=== PATIENT | female | born 1965 | race Caucasian/White ===

== ENCOUNTER → 2019-12-28 11:15 | Outpatient (CLI) | payer OTHER, SELFPAY ==
--- NOTE | ~2019-12-28 | MM_ITS ---
EXAMINATION: MM screening [facility] BI w sean HISTORY: Screening mammogram TECHNIQUE: Craniocaudal and mediolateral oblique 3-D tomosynthesis images were obtained and synthetic 2-D images were generated. CAD analysis was submitted and interpreted. COMPARISON: 11/01/2018, 10/28/2017, 10/27/2016 BREAST PARENCHYMAL COMPOSITION: There are scattered areas of fibroglandular density. FINDINGS: There is no evidence of suspicious mass, calcification, or architectural distortion to sugg est malignancy in either breast. There has been no suspicious interval change. IMPRESSION: 1. No mammographic evidence of malignancy. 2. Recommend routine screening mammography in one year. BI-RADS Category 1: Negative Reviewed, dictated and finalized at location A. ICAL WORKER
== END ==
PROVIDERS: PCP Internal Medicine; Visit Provider Obstetrics & Gynecology
DX: Z12.31 Encounter for screening mammogram for malignant neoplasm of breast (principal)
CPT/HCPCS: 77063; 77067

== ENCOUNTER → 2020-08-05 08:48 | Outpatient (CLI) | payer OTHER, SELFPAY ==
--- NOTE | ~2020-08-05 | US_ITS ---
EXAMINATION: US carotid duplex BI DATE: 08/05/2020 09:11 INDICATION: Right carotid bruit TECHNIQUE: Grayscale, color Doppler, and pulsed Doppler images of the cervical carotid arteries were obtained. The degree of vessel stenosis is placed in one of the following categories: normal, <50%, 5 0-69%, >=70% but less than near-occlusion, near-occlusion, or total occlusion. Note that percent sten osis relative to normal distal artery lumen diameter is indirectly measured from velocity measurement s as described by Sergey, et al. Radiology 2003; 229:340-346. Notes: Normal: Peak systolic velocity <125 centimeters/sec and no plaque <50%. Peak systolic velocity <125 ( EDV <40; ICA/CCA PSV ratio <2.0; used these factors only a tandem lesions or low cardiac output or co ntralateral disease) 50-69 %: PSV 125-230 (EDV 40-100; ratio 2-4) >= 70% but less than near occlusion: PSV greater than 230 (EDV > 100; ratio> 4.0) Near Occlusion: PSV that is variable; markedly narrowed lumen Occlusion: Absent flow on color/spectral Doppler and no lumen on acosta scale. COMPARISON: None. FINDINGS: RIGHT: The right common carotid artery (CCA) peak systolic velocity (PSV) is 90 cm/s. The right internal car otid artery (ICA) PSV is 126 cm/s. The right ICA end-diastolic velocity (EDV) is 45 cm/s. The right I CA/CCA PSV ratio is 1.9. The external carotid artery (ECA) PSV is 109 cm/s. There is antegrade flow i n the right vertebral artery. LEFT: The left CCA PSV is 99 cm/s. The left ICA PSV is 105 cm/s. The left ICA EDV is 45 cm/s. The left ICA/ CCA PSV ratio is 1.3. The ECA PSV is 84 cm/s. There is antegrade flow in the left vertebral artery. IMPRESSION: 1. Less than 50% stenosis in the right internal carotid artery by sonographic criteria. 2. Less than 50% stenosis in the left internal carotid artery by sonographic criteria. Reviewed, dictated and finalized at location B. IMPRESSION: 1. Less than 50% stenosis in the right internal carotid artery by sonographic ricki ramos. 2. Less than 50% stenosis in the left internal carotid artery by sonographic monique gorman.
== END ==
PROVIDERS: Visit Provider Internal Medicine
DX: R09.89 Other specified symptoms and signs involving the circulatory and respiratory systems (principal); I65.23 Occlusion and stenosis of bilateral carotid arteries
CPT/HCPCS: 93880

== ENCOUNTER → 2021-01-13 12:15 | Outpatient (CLI) | payer OTHER, SELFPAY ==
--- NOTE | ~2021-01-13 | MM_ITS ---
EXAMINATION: MM screening [facility] BI w sean HISTORY: Screening mammogram TECHNIQUE: Craniocaudal and mediolateral oblique 3-D tomosynthesis images were obtained and synthetic 2-D images were generated. CAD analysis was submitted and interpreted. COMPARISON: 12/28/2019, 11/01/2018, 10/28/2017 BREAST PARENCHYMAL COMPOSITION: There are scattered areas of fibroglandular density. FINDINGS: There is no evidence of suspicious mass, calcification, or architectural distortion to sugg est malignancy in either breast. There has been no suspicious interval change. IMPRESSION: 1. No mammographic evidence of malignancy. 2. Recommend routine screening mammography in one year. BI-RADS Category 1: Negative Reviewed, dictated and finalized at location A. NEYMAN SHEET METAL WORKER
== END ==
PROVIDERS: PCP Internal Medicine; Visit Provider Obstetrics & Gynecology
DX: Z12.31 Encounter for screening mammogram for malignant neoplasm of breast (principal)
CPT/HCPCS: 77063; 77067

== ENCOUNTER → 2021-10-07 10:24 | Outpatient (CLI) | payer OTHER, SELFPAY ==
--- NOTE | ~2021-10-07 | DEXA_ITS ---
Bone Density Report Name: Sania Mathew Age: 55 Sex: Female Ethnicity: White Date of : 1965 Indication: osteopenia; monitoring treatment; hysterectomy; postmenopausal Referring Provider: SURAJ, LOWELL León Study: Bone densitometry was performed. Exam Date: October 07, 2021 Accession number: [id number] Bone Density: Region BMD T-score Z-score Classification AP Spine (L1-L4) 0.832 -2.0 -0.7 Osteopenia Femoral Neck (Left) 0.658 -1.7 -0.5 Osteopenia Total Hip (Left) 0.823 -1.0 -0.2 Normal Femoral Neck (Right) 0.673 -1.6 -0.4 Osteopenia Total Hip (Right) 0.793 -1.2 -0.4 Osteopenia Total Hip Mean 0.808 -1.1 -0.3 Osteopenia World Health Organization criteria for BMD impression classify patients as: Normal (T-score at or above -1.0), Osteopenia (T-score between -1.0 and -2.5), or Osteoporosis (T-score at or below -2.5). 10-year Fracture Risk: FRAX not reported because: Treated for osteoporosis Previous Exams: Region Exam Age BMD T-score BMD Change BMD Change Date g/cm2 vs Baseline vs Previous AP Spine(L1-L4) 10/07/2021 55 0.832 -2.0 -0.106* -0.106* 11/05/2008 42 0.938 -1.0 Total Hip(Left) 10/07/2021 55 0.823 -1.0 -0.012 -0.012 11/05/2008 42 0.835 -0.9 Total Hip(Right) 10/07/2021 55 0.793 -1.2 -0.011 -0.011 11/05/2008 42 0.804 -1.1 *Denotes significance at 95% confidence level, LSC for AP Spine = 0.022 g/cm2, LSC for Total Hip = 0.027 g/cm2 Clinical Information Provided by Patient: Is being treated for osteoporosis Has used the following medications: HRT (i.e. estrogen/hormone therapy), Vitamin D, Calcium, MTV Has the following medical conditions: Hysterectomy Patient maximum height was 66.0 Menopause Age: 27 Drinks caffeinated beverages Onset of menses at age 10 Number of children 3 Impression: The patient has low bone mass, based on the Total Spine T-score. The BMD for the AP Spine(L1-L4) decreased, changing by -0.106 since the last DXA exam. Discussion: SIGNIFICANT BONE LOSS OBSERVED. Adherence to therapy (including calcium and vitamin D intake) should be assessed. If compliance is not a factor, review management and exclusion of secondary causes of bone loss. It is important to ask patients whether they are taking their medications and to encourage continued and appropriate compliance with their osteoporosis therapies to reduce fracture risk. It is also important to review their
== END ==
PROVIDERS: PCP Internal Medicine; Visit Provider Internal Medicine
DX: Z78.0 Asymptomatic menopausal state (principal); M85.89 Other specified disorders of bone density and structure, multiple sites
CPT/HCPCS: 77080

== ENCOUNTER → 2022-01-16 12:20 | Outpatient (CLI) | payer OTHER, SELFPAY ==
--- NOTE | ~2022-01-16 | MM_ITS ---
EXAMINATION: MM screening [facility] w sean HISTORY: Screening mammogram TECHNIQUE: Craniocaudal and mediolateral oblique 3-D tomosynthesis images were obtained and synthetic 2-D images were generated. CAD analysis was submitted and interpreted. COMPARISON: November 12, 2021, December 28, 2019, November 01, 2018 bilateral screening mammogram exam inations BREAST PARENCHYMAL COMPOSITION: There are scattered areas of fibroglandular density. FINDINGS: Biopsy marker on the left; history of prior benign left breast biopsy. There is a new approximately 6 x 9 mm asymmetric density in the medial subareolar area of the left br east. Diagnostic left mammogram is recommended, with ultrasound if required. Otherwise there is no evidence of suspicious mass, calcification, or architectural distortion to sugg est malignancy in either breast. There has been no suspicious interval change. IMPRESSION: 1. New approximately 6 x 9 mm asymmetric density in the medial subareolar area of left breast 2. Diagnostic left mammogram and left breast ultrasound examination are recommended. BI-RADS Category 0: Incomplete: Needs comparison with prior mammograms. Reviewed, dictated and finalized at location A. PLER IMPRESSION: 1. New approximately 6 x 9 mm asymmetric density in the medial subareolar area of left breast 2. Diagnostic left mammogram and left breast ultrasound examination are recomme nded. BI-RADS Category 0: Incomplete: Needs comparison with prior mammograms.
== END ==
PROVIDERS: PCP Internal Medicine; Visit Provider Obstetrics & Gynecology
DX: Z12.31 Encounter for screening mammogram for malignant neoplasm of breast (principal); R92.8 Other abnormal and inconclusive findings on diagnostic imaging of breast
CPT/HCPCS: 77063; 77067

== ENCOUNTER → 2022-01-30 08:46 | Outpatient (CLI) | payer OTHER, SELFPAY ==
--- NOTE | ~2022-01-30 | MMUS_ITS ---
EXAMINATION: US breast LT complete, MM diagnostic [facility] LT w sean HISTORY: Follow-up left breast mass TECHNIQUE: Additional 3-D tomosynthesis images of the left breast were performed and synthetic 2-D im ages were generated. CAD analysis was submitted and interpreted. High resolution complete left breast ultrasound was performed. COMPARISON: Comparison to multiple prior studies sequentially, with oldest reviewed study dated 04/2016. BREAST PARENCHYMAL COMPOSITION: Breast composed of scattered areas of fibroglandular density. FINDINGS: MAMMOGRAPHIC FINDINGS: There is a mass in the subareolar location of the left breast. There is a tissue marker centrally in the left breast. There are no suspicious calcifications or architectural distortion. ULTRASOUND: Complete US of all 4 quadrants of the left breast and retroareolar region was reviewed. There is a 1 cm cyst in the subareolar location of the left breast. There are multiple additional simple and compl icated cysts of the left breast. At 10:00, 3 cm from the nipple there is an oval hypoechoic mass balwinder uring 5 mm without internal vascularity. There is subtle posterior shadowing. No internal vascularity . This could represent a benign cluster of microcysts. IMPRESSION: 1. Probable benign left breast mass at 10:00, 3 cm from the nipple. Multiple additional simple and co mplicated cysts are present, largest measuring 1 cm corresponding to the mammographic abnormality. 2. 6 month follow-up Limited left breast ultrasound recommended. BI-RADS category 3, probably benign findings. Reviewed, dictated and finalized at location A. STRIPER IMPRESSION: 1. Probable benign left breast mass at 10:00, 3 cm from the nipple. Multiple ad ditional simple and complicated cysts are present, largest measuring 1 cm corre sponding to the mammographic abnormality. 2. 6 month follow-up Limited left breast ultrasound recommended. BI-RADS category 3, probably benign findings.
== END ==
PROVIDERS: PCP Internal Medicine; Visit Provider Obstetrics & Gynecology
DX: N63.22 Unspecified lump in the left breast, upper inner quadrant (principal); N60.02 Solitary cyst of left breast
CPT/HCPCS: 76641; 77061; 77065; G0279

== ENCOUNTER → 2022-08-04 08:24 | Outpatient (CLI) | payer OTHER, SELFPAY ==
--- NOTE | ~2022-08-04 | US_ITS ---
US breast LT limited DATE: 08/04/2022 08:42 INDICATION: Six-month follow-up of probable benign left breast mass at 10:00 3 cm from nipple TECHNIQUE: . Targeted ultrasound at 10:00 3 cm, 2 cm and 1 cm from nipple COMPARISON: 01/30/2022 complete left breast ultrasound FINDINGS: 10:00 3 cm from nipple: Septated 4 x 5.2 x 3.5 mm cyst 10:00 3 cm from nipple: 3.5 x 5.2 x 4.2 mm probable cyst 10:00 2 cm from nipple: Probable septated 4 x 3.3 x 5.1 mm cyst 10:00 1 cm from nipple: 5 x 6.2 x 5.5 mm sonolucency, consistent with cyst IMPRESSION: BI-RADS Category 2: Benign Recommendation: Routine mammographic screening Reviewed, dictated and finalized at Location A. Reviewed, dictated and finalized at location A.
== END ==
PROVIDERS: PCP Internal Medicine; Visit Provider Obstetrics & Gynecology
DX: N63.20 Unspecified lump in the left breast, unspecified quadrant (principal)
CPT/HCPCS: 76642

== ENCOUNTER → 2023-04-20 10:46 | Outpatient (CLI) | payer OTHER, SELFPAY ==
--- NOTE | ~2023-04-20 | MM_ITS ---
EXAMINATION: MM screening [facility] BI w sean HISTORY: Screening mammogram TECHNIQUE: Craniocaudal and mediolateral oblique 3-D tomosynthesis images were obtained and synthetic 2-D images were generated. CAD analysis was submitted and interpreted. COMPARISON: 08/04/2022 Limited left breast ultrasound 01/30/2022 diagnostic bilateral mammogram and complete left breast ultrasound 01/16/2022, 01/13/2021, 12/28/2019 bilateral screening mammogram examinations BREAST PARENCHYMAL COMPOSITION: There are scattered areas of fibroglandular density. FINDINGS: Bilateral mammographic asymmetries. Bilateral diagnostic mammography and bilateral breast ultrasound examination are recommended. IMPRESSION: 1. No mammographic asymmetries 2. Bilateral diagnostic mammography and breast ultrasound examination are recommended BI-RADS Category 0: Incomplete: Needs additional imaging evaluation. Reviewed, dictated and finalized at location A. IMPRESSION: 1. No mammographic asymmetries 2. Bilateral diagnostic mammography and breast ultrasound examination are recom mended BI-RADS Category 0: Incomplete: Needs additional imaging evaluation.
== END ==
PROVIDERS: PCP Obstetrics & Gynecology; Visit Provider Obstetrics & Gynecology
DX: Z12.31 Encounter for screening mammogram for malignant neoplasm of breast (principal); R92.8 Other abnormal and inconclusive findings on diagnostic imaging of breast
CPT/HCPCS: 77063; 77067

== ENCOUNTER → 2023-05-07 09:17 | Outpatient (CLI) | payer OTHER, SELFPAY ==
--- NOTE | ~2023-05-07 | MMUS_ITS ---
EXAMINATION: MM diagnostic [facility] BI w sean, US breast BI complete HISTORY: Bilateral mammographic asymmetries reported on 04/20/2023 screening mammogram TECHNIQUE: Additional 3-D tomosynthesis images of both breasts were performed and synthetic 2-D image s were generated. CAD analysis was submitted and interpreted. High resolution complete bilateral [address] ultrasound examination including all 4 quadrants and subareolar area ultrasound was performed. COMPARISON: 04/20/2023 bilateral screening mammogram 08/04/2022 Limited left breast ultrasound 01/30/2022 diagnostic left mammogram and complete left breast ultrasound 01/13/2021, 12/28/2019 bilateral screening mammogram examinations FINDINGS: MAMMOGRAPHIC FINDINGS: There is a biopsy marker on the left; history of prior benign bilateral breast biopsies. No interval suspicious mass, architectural distortion, malignant calcification, skin thickening or re traction or significant new or developing density is noted since 12/28/2019. ULTRASOUND: No suspicious mass or shadowing of either breast is detected. Right breast: 2:00 0.5 cm from nipple: 3 mm circumscribed lesion with central fatty area, possibly a intramammary l ymph node, benign in appearance, without internal vascularity or posterior shadowing. Left breast: 1:00 1 cm from nipple: 2.4 x 4.3 x 4.8 mm circumscribed sonolucency consistent with cyst 2:00 2 cm from nipple: 3.2 x 4.6 x 4.2 mm cyst 10:00 3 cm from nipple: Septated 5.8 x 6 x 6.3 mm cyst 10:00 2 cm from nipple: 3.2 x 4.8 x 6.3 mm cyst 10:00 1 cm from nipple: 2.2 x 2.4 x 2.6 mm cyst Subareolar area: 2.2 x 2.7 x 3.2 mm cyst and 2.6 x 2.1 x 2.4 mm cyst IMPRESSION: 1. Benign findings 2. Routine annual mammographic screening is recommended BI-RADS Category 2: Benign finding(s). Reviewed, dictated and finalized at location A. IMPRESSION: 1. Benign findings 2. Routine annual mammographic screening is recommended BI-RADS Category 2: Benign finding(s).
== END ==
PROVIDERS: PCP Internal Medicine; Visit Provider Obstetrics & Gynecology
DX: R92.8 Other abnormal and inconclusive findings on diagnostic imaging of breast (principal)
CPT/HCPCS: 76641; 77062; 77066; G0279

== ENCOUNTER → 2023-10-29 14:52 | Outpatient (CLI) | payer OTHER, SELFPAY ==
--- NOTE | ~2023-10-29 | DEXA_ITS ---
Bone Density Report Name: LILY PEREZ Age: 57 Sex: Female Ethnicity: White Date of : 1965 Indication: osteopenia; monitoring treatment; hysterectomy; Referring Provider: SURAJ, LOWELL León Study: Bone densitometry was performed. Exam Date: October 29, 2023 Accession number: [id number] Bone Density: Region BMD T-score Z-score Classification AP Spine (L1-L4) 0.827 -2.0 -0.6 Osteopenia Femoral Neck (Left) 0.720 -1.2 0.1 Osteopenia Total Hip (Left) 0.863 -0.7 0.3 Normal Femoral Neck (Right) 0.699 -1.3 -0.1 Osteopenia Total Hip (Right) 0.839 -0.8 0.1 Normal Total Hip Mean 0.851 -0.8 0.2 Normal World Health Organization criteria for BMD impression classify patients as: Normal (T-score at or above -1.0), Osteopenia (T-score between -1.0 and -2.5), or Osteoporosis (T-score at or below -2.5). 10-year Fracture Risk: FRAX not reported because: Treated for osteoporosis Previous Exams: Region Exam Age BMD T-score BMD Change BMD Change Date g/cm2 vs Baseline vs Previous AP Spine(L1-L4) 10/29/2023 57 0.827 -2.0 -0.111* -0.005 10/07/2021 55 0.832 -2.0 -0.106* -0.106* 11/05/2008 42 0.938 -1.0 Total Hip(Left) 10/29/2023 57 0.863 -0.7 0.028* 0.040* 10/07/2021 55 0.823 -1.0 -0.012 -0.012 11/05/2008 42 0.835 -0.9 Total Hip(Right) 10/29/2023 57 0.839 -0.8 0.035* 0.046* 10/07/2021 55 0.793 -1.2 -0.011 -0.011 11/05/2008 42 0.804 -1.1 *Denotes significance at 95% confidence level, LSC for AP Spine = 0.022 g/cm2, LSC for Total Hip = 0.027 g/cm2 Clinical Information Provided by Patient: Is being treated for osteoporosis Has used the following medications: HRT (i.e. estrogen/hormone therapy), Vitamin D, Calcium, MTV Has the following medical conditions: Hysterectomy Patient maximum height was 66.0 Menopause Age: 27 Drinks caffeinated beverages Onset of menses at age 10 Number of children 3 Impression: The patient has low bone mass, based on the Total Spine T-score. No significant bone loss was observed. Discussion: PATIENT UNDER TREATMENT WITH NO SIGNIFICANT BMD LOSS SINCE LAST EXAM. In an untreated patient, BMD typically declines with age. A lack of decline or gain is usually a sign that treatment is efficacious and fracture risk is reduced. It is important to ask patients whether they are taking their medications and
== END ==
PROVIDERS: PCP Internal Medicine; Visit Provider Internal Medicine
DX: M85.80 Other specified disorders of bone density and structure, unspecified site (principal)
CPT/HCPCS: 77080

== ENCOUNTER 2024-08-10 13:15 | Outpatient (CLI) | payer OTHER, SELFPAY ==
--- NOTE | ~2024-08-10 | XR_ITS ---
EXAMINATION: XR heel LT min 2V DATE: 08/10/2024 13:47 INDICATION: Left heel pain. TECHNIQUE: 2 views of left calcaneus were obtained. COMPARISON: None. FINDINGS: Alignment is normal. No fracture. Joint spaces are normal. There is an enthesophyte at plan tar aspect of calcaneal tuberosity. IMPRESSION: 1. No fracture. Reviewed, dictated and finalized at location A. IMPRESSION: 1. No fracture.
--- NOTE | ~2024-08-10 | XR_ITS ---
EXAMINATION: XR heel RT min 2V DATE: 08/10/2024 13:46 INDICATION: Right heel pain. TECHNIQUE: 2 views of right calcaneus were obtained. COMPARISON: Right foot radiographs 07/11/2018 FINDINGS: Bone alignment is normal. No fracture. There is mild osteoarthritis of talonavicular joint. There is an enthesophyte at plantar aspect of calcaneal tuberosity. IMPRESSION: 1. No fracture. Reviewed, dictated and finalized at location A. IMPRESSION: 1. No fracture.
== END 2024-08-10 13:16 | disposition home or self-care (01) ==
PROVIDERS: PCP Internal Medicine; Visit Provider Chiropractor
DX: M79.671 Pain in right foot (principal); M79.641 Pain in right hand
CPT/HCPCS: 73650

== ENCOUNTER 2024-08-11 14:35 | Outpatient (CLI) | payer OTHER, SELFPAY ==
--- NOTE | ~2024-08-11 | MM_ITS ---
EXAMINATION: MM screening [facility] BI w sean HISTORY: Screening TECHNIQUE: Craniocaudal and mediolateral oblique 3-D tomosynthesis images were obtained and synthetic 2-D images were generated. CAD analysis was submitted and interpreted. COMPARISON: Comparison to multiple prior studies sequentially, with oldest reviewed study dated 04/2020. BREAST PARENCHYMAL COMPOSITION: Not dense: There are scattered areas of fibroglandular density. FINDINGS: The right breast is stable without evidence for malignancy. There are developing nodular as ymmetries in the central aspect of the left breast, middle-posterior depth. IMPRESSION: 1. Developing left breast asymmetries. 2. Additional spot compression and mediolateral views with possible follow-up breast ultrasound recom mended. BI-RADS CATEGORY 0 - INCOMPLETE STUDY, NEED ADDITIONAL IMAGING EVALUATION. Reviewed, dictated and finalized at location B. IMPRESSION: 1. Developing left breast asymmetries. 2. Additional spot compression and mediolateral views with possible follow-up b reast ultrasound recommended. BI-RADS CATEGORY 0 - INCOMPLETE STUDY, NEED ADDITIONAL IMAGING EVALUATION.
== END 2024-08-11 14:36 | disposition home or self-care (01) ==
LOC: MICIMG 14:36
PROVIDERS: PCP Internal Medicine; Visit Provider Obstetrics & Gynecology
DX: Z12.31 Encounter for screening mammogram for malignant neoplasm of breast (principal); N64.89 Other specified disorders of breast
CPT/HCPCS: 77063; 77067

== ENCOUNTER 2024-08-31 08:48 | Outpatient (CLI) | payer OTHER, SELFPAY ==
--- NOTE | ~2024-08-31 | MMUS_ITS ---
EXAMINATION: MM diagnostic nahtaniel LT w sean, US breast LT complete HISTORY: Follow-up left breast asymmetries TECHNIQUE: Additional 3-D tomosynthesis images of the left breast were performed and synthetic 2-D im ages were generated. CAD analysis was submitted and interpreted. High resolution complete left breast ultrasound was performed. COMPARISON: Comparison to multiple prior studies sequentially, with oldest reviewed study dated 01/12 BREAST PARENCHYMAL COMPOSITION: Not dense: There are scattered areas of fibroglandular density. FINDINGS: MAMMOGRAPHIC FINDINGS: there are focal asymmetry centrally in the left breast, middle-posterior depth with associated cyrus ectural distortion. There is a tissue marker from previous biopsy located centrally. There are no kelly picious calcifications. ULTRASOUND: Complete US of all 4 quadrants of the left breast/s and retroareolar region was reviewed. 12:00 near the nipple there is a 5 mm cyst. At 10:00, 2 cm from the nipple there is an oval hypoechoic mass with echogenic center measuring 4 mm, likely benign. At 10:00, 2 cm from the nipple there is an irregular hypoechoic mass measuring 4 x 3 x 3 mm. There is internal vascularity with no significant posterior features. IMPRESSION: 1. Irregular hypoechoic 4 mm left breast mass at 10:00, 2 cm from the nipple. 2. Ultrasound-guided left breast biopsy recommended. BI-RADS category 4, suspicious findings. Reviewed, dictated and finalized at location B. IMPRESSION: 1. Irregular hypoechoic 4 mm left breast mass at 10:00, 2 cm from the nipple. 2. Ultrasound-guided left breast biopsy recommended. BI-RADS category 4, suspicious findings.
== END 2024-08-31 08:49 | disposition home or self-care (01) ==
LOC: MICIMG 08:48
PROVIDERS: PCP Internal Medicine; Visit Provider Obstetrics & Gynecology
DX: N63.22 Unspecified lump in the left breast, upper inner quadrant (principal); R92.8 Other abnormal and inconclusive findings on diagnostic imaging of breast
CPT/HCPCS: 76641; 77061; 77065; G0279

== ENCOUNTER 2024-12-28 08:45 | Outpatient (CLI) | payer OTHER, SELFPAY ==
--- NOTE | ~2024-12-28 | MMUS_ITS ---
EXAMINATION: MM diagnostic nathaniel LT w sean, US breast LT limited HISTORY: History of previous left breast biopsy. TECHNIQUE: Additional 3-D tomosynthesis images of the left breast were performed and synthetic 2-D im ages were generated. CAD analysis was submitted and interpreted. High resolution Limited left breast ultrasound was performed. COMPARISON: Comparison to multiple prior studies sequentially, with oldest reviewed study dated 04/2022. BREAST PARENCHYMAL COMPOSITION: Not dense: There are scattered areas of fibroglandular density. FINDINGS: MAMMOGRAPHIC FINDINGS: There is a focal asymmetry in the medial aspect of the left breast with irregular margins on CC view. This is not well visualized on medial lateral or MLO views. ULTRASOUND: Limited left breast ultrasound: At 10:00, 2 cm from the nipple there is an antiparallel irregular sha ped hypoechoic mass with marginal vascularity measuring 5 x 4 x 3 mm compared with 4 x 3 x 3 mm on pr ior examination dated 08/31/2024. There is a second oval hypoechoic mass with parallel orientation me asuring 4 x 3 x 3 mm at 10:00, 2 cm from the nipple which does not appear to be significantly changed from prior examination allowing for differences of technique. IMPRESSION: 1. Irregular shaped antiparallel left breast mass at 10:00, 2 cm from the nipple measuring 5 mm maxim um dimension. 2. Ultrasound-guided left breast biopsy recommended. BI-RADS category 4, suspicious findings. Reviewed, dictated and finalized at location B. OSYSTEMS ENGINEER IMPRESSION: 1. Irregular shaped antiparallel left breast mass at 10:00, 2 cm from the nippl e measuring 5 mm maximum dimension. 2. Ultrasound-guided left breast biopsy recommended. BI-RADS category 4, suspicious findings.
== END 2024-12-28 08:46 | disposition home or self-care (01) ==
LOC: MICIMG 08:46
PROVIDERS: PCP Internal Medicine
DX: N63.21 Unspecified lump in the left breast, upper outer quadrant (principal); Z98.890 Other specified postprocedural states
CPT/HCPCS: 76642; 77061; 77065; G0279

== ENCOUNTER 2025-08-16 11:20 | Outpatient (CLI) | payer OTHER, SELFPAY ==
--- NOTE | ~2025-08-16 | MM_ITS ---
EXAMINATION: MM screening [facility] BI w sean HISTORY: Screening TECHNIQUE: Craniocaudal and mediolateral oblique 3-D tomosynthesis images were obtained and synthetic 2-D images were generated. CAD analysis was submitted and interpreted. COMPARISON: Comparison to multiple prior studies sequentially, with oldest reviewed study dated , 12/28/2019 BREAST PARENCHYMAL COMPOSITION: There are scattered areas of fibroglandular density. FINDINGS: There is no evidence of suspicious mass, calcification, or architectural distortion to suggest malignancy in either breast. Biopsy clips in the left breast. IMPRESSION: 1. No mammographic evidence of malignancy. 2. Recommend routine screening mammography in one year. BI-RADS Category 1: Negative Reviewed, dictated and finalized at location B.
== END 2025-08-16 11:21 | disposition home or self-care (01) ==
LOC: MICIMG 11:20
PROVIDERS: PCP Obstetrics & Gynecology; Visit Provider Internal Medicine
DX: Z12.31 Encounter for screening mammogram for malignant neoplasm of breast (principal)
CPT/HCPCS: 77063; 77067

== ENCOUNTER 2025-10-30 09:23 | Outpatient (CLI) | payer OTHER, SELFPAY ==
--- NOTE | ~2025-10-30 | DEXA_ITS ---
Bone Density Report Name: LILY PEREZ Age: 59 Sex: Female Ethnicity: White Date of : 1965 Indication: osteopenia; parental hip fracture; hysterectomy; Referring Provider: Usman, Haley Study: Bone densitometry was performed. Exam Date: October 30, 2025 Accession number: [id number] Bone Density: Region BMD T-score Z-score Classification AP Spine(L1-L4) 0.802 -2.2 -0.7 Osteopenia Femoral Neck (Left) 0.650 -1.8 -0.4 Osteopenia Total Hip (Left) 0.773 -1.4 -0.3 Osteopenia Femoral Neck (Right) 0.627 -2.0 -0.6 Osteopenia Total Hip (Right) 0.760 -1.5 -0.4 Osteopenia Total Hip Mean 0.767 -1.5 -0.4 Osteopenia World Health Organization criteria for BMD impression classify patients as: Normal (T-score at or above -1.0), Osteopenia (T-score between -1.0 and -2.5), or Osteoporosis (T-score at or below -2.5). 10-year Fracture Risk(1): Major Osteoporotic Fracture 18% Hip Fracture 1.3% Reported Risk Factors: [place] (), Neck BMD=0.627, BMI=23.0, parental fracture (1) FRAX(R) Version 3.08. Fracture probability calculated for an untreated patient. Fracture probability may be lower if the patient has received treatment. Previous Exams: -- Region Exam Age BMD T-score BMD Change BMD Change Date g/cm2 vs Baseline vs Previous -- AP Spine (L1-L4) 10/30/2025 59 0.802 -2.2 -14.5%* -3.1%* 10/29/2023 57 0.827 -2.0 -11.8%* -0.6% 10/07/2021 55 0.832 -2.0 -11.3%* -11.3%* 11/05/2008 42 0.938 -1.0 Total Hip(Left) 10/30/2025 59 0.773 -1.4 -7.4%* -10.4%* 10/29/2023 57 0.863 -0.7 3.3%* 4.8%* 10/07/2021 55 0.823 -1.0 -1.4% -1.4% 11/05/2008 42 0.835 -0.9 Total Hip(Right) 10/30/2025 59 0.760 -1.5 -5.5%* -9.4%* 10/29/2023 57 0.839 -0.8 4.4%* 5.8%* 10/07/2021 55 0.793 -1.2 -1.3% -1.3% 11/05/2008 42 0.804 -1.1 -- *Denotes significance at 95% confidence level, LSC for AP Spine = 0.022 g/cm2, LSC for Total Hip = 0.027 g/cm2 Clinical Information Provided by Patient: Parent has had a hip fracture Has used the following medications: Vitamin D, Calcium Has the following medical conditions: Hysterectomy Patient maximum height was 66 Menopause Age: 27 Drinks caffeinated beverages Onset of menses at age 10 Number of children 3 Impression: The patient has low bone mass, based on the Total Spine T-score. The patient has an estimated ten-year risk of hip fracture of 1.3% and an estimated ten-year risk of major fracture of 18%, based on the WHO FRAX algorithm. The patient has risk factors, including: parental hip fracture. The BMD for the AP Spine (L1-L4) decreased, changing by -3.1% since the last DXA exam. The BMD for the Total Hip(Left) decreased, changing by -10.4% since the last DXA exam. The BMD for the Total Hip(Right) decreased, changing by -9.4% since the last DXA exam. Discussion: BONE DENSITY IS LOW AT ONE OR MORE SKELETAL SITES. This patient's lowest T-score is low at one or more skeletal sites. It meets the World Health Organization's (WHO) criteria for ?low bone mass? (T-score between -1.0 and -2.5). The patient's 10-year risk of fracture as calculated by FRAX is less than the threshold where pharmacological therapy is recommended by the National Osteoporosis Foundation (NOF). However, all treatment decisions require clinical judgment and consideration of individual patient factors, including patient preferences, comorbidities, previous drug use, risk factors not captured in the FRAX model (e.g., frailty, falls, vitamin D deficiency, increased bone turnover, interval significant decline in bone density) and possible under or overestimation of fracture risk by FRAX. The patient should follow a healthful lifestyle (good nutrition with adequate calcium and vitamin D, and appropriate weight-bearing exercise). Follow-Up: Consider repeating this study in 2 years to reassess this patient's status, or sooner if there is some new clinical indication. Reported by: IVIS on 10/30/2025 9:46:00 AM. Reviewed, dictated and finalized at location A.
== END 2025-10-30 09:24 | disposition home or self-care (01) ==
PROVIDERS: PCP Obstetrics & Gynecology; Visit Provider Internal Medicine
DX: M85.89 Other specified disorders of bone density and structure, multiple sites (principal); Z82.62 Family history of osteoporosis; Z78.0 Asymptomatic menopausal state
CPT/HCPCS: 77080